=== PATIENT | female | born 1965 | race Caucasian/White ===

== ENCOUNTER 2023-11-05 13:38 | Inpatient (IN) | payer MEDICAID ==
[~2023-11-05] VITALS: Ht 154.9 cm; Wt 110.7 kg
[2023-11-05 16:12] VITALS: BP 123/74; PULSE 74; RESP 19; TEMP 97.7; O2SAT 97
[2023-11-05] MEDS ORDERED: PNEUMOCOCCAL VACCINE POLYVALENT 0.5 ML SYRINGE [PPSV23] IM. ONE (17:00)
[2023-11-05] MEDS: ZOLPIDEM TARTRATE 10 MG TABLET PO PRN (21:48)
[2023-11-05] MEDS: LORazepam 2 MG TABLET PO PRN (21:48)
[2023-11-05 23:21] VITALS: BP 128/74; PULSE 77; RESP 18; TEMP 98.1; O2SAT 96
[2023-11-06] MEDS: MetFORMIN HCL 500 MG TABLET PO SCH (06:29)
[2023-11-06 06:41] LABS: GLUCOMETER DEV NAME(LOC) BV2S.; GLUCOSE,POINT OF CARE 123 MG/DL (70-110)
[2023-11-06 08:35] LABS: BASOPHILS % (AUTO) 0.9 % (0.0-2.0); EOSINOPHILS % (AUTO) 1.9 % (1.0-6.0); HEMOGLOBIN 13.3 g/dL (12.0-16.0); LYMPHOCYTES # (AUTO) 1.3 K/uL (1.0-4.8); LYMPHOCYTES % (AUTO) 36.2 % (22.0-44.0); MEAN CORPUSCULAR HEMOGLOBIN 31.5 pg (26.0-34.0); MEAN CORPUSCULAR HGB CONC 33.3 G/dL (31.0-37.0); MEAN CORPUSCULAR VOLUME 95 fL (80-100); MONOCYTES # (AUTO) 0.3 K/uL (0.1-1.0); MONOCYTES % (AUTO) 7.5 % (2.0-9.0); NEUTROPHILS # (AUTO) 1.9 K/uL (1.8-7.7); NEUTROPHILS % (AUTO) 53.5 % (40.0-70.0); PLATELET COUNT (AUTO) 191 K/uL (150-450); RED BLOOD CELL COUNT(AUTO) 4.23 MIL/uL (4.00-5.20); RED CELL DISTRIBUTION WIDTH 13.8 % (11.5-14.5); WHITE BLOOD COUNT (AUTO) 3.5 K/uL (4.5-11.0)
[2023-11-06 08:56] VITALS: BP 126/62; PULSE 66; RESP 17; TEMP 97.7; O2SAT 96
[2023-11-06 08:59] LABS: ALANINE AMINOTRANSFERASE 20 U/L (12-78); ALBUMIN 3.3 g/dL (3.4-5.0); ALKALINE PHOSPHATASE 105 U/L (46-116); ANION GAP 9 mmol/L (8-16); ASPARTATE AMINOTRANSFERASE 20 U/L (15-37); BILIRUBIN,TOTAL 0.2 mg/dL (0.1-1.0); CALCIUM, TOTAL 9.3 mg/dL (8.8-10.5); CARBON DIOXIDE 28 mmol/L (22-29); CHLORIDE 103 mmol/L (98-107); CHOL/HDL RATIO 7.4 (3.9-5.7); CHOLESTEROL 331 mg/dL (131-200); CREATININE 0.67 mg/dL (0.60-1.30); FREE T4 (FREE THYROXINE) 1.03 ng/dL (0.76-1.46); GLOMERULAR FILTR. RATE CALC > 60 mL/min (>60); GLUCOSE,RANDOM 110 mg/dL (70-110); HDL CHOLESTEROL 45 mg/dL (40-60); LDL CHOL (CALC.) 231 mg/dL (0-130); POTASSIUM 4.3 mmol/L (3.5-5.1); SODIUM SERUM 140 mmol/L (136-145); THYROID STIMULATING HORMONE 1.33 uIU/mL (0.36-3.74); TOTAL PROTEIN, SERUM 7.8 g/dL (6.4-8.2); TRIGLYCERIDES 276 mg/dL (15-150); UREA NITROGEN, BLOOD 11 mg/dL (7-18)
[2023-11-06] MEDS ORDERED: BACITRACIN 28 GM OINTMENT TP PRN (09:00)
[2023-11-06] MEDS ORDERED: CloNIDine HCL 0.1 MG TABLET PO PRN (09:00)
[2023-11-06] MEDS ORDERED: OMEPRAZOLE 20 MG CAPSULE PO PRN (09:00)
[2023-11-06] MEDS ORDERED: MAG HYDROX/ALUMINUM HYD/SIMETH ES 30 ML SUSPENSION UDCUP PO PRN (09:00)
[2023-11-06] MEDS ORDERED: PETROLATUM,WHITE 28 GM JELLY TP PRN (09:00)
[2023-11-06] MEDS: LORazepam 2 MG TABLET PO PRN (09:00)
[2023-11-06] MEDS ORDERED: ALBUTEROL SULFATE HFA 90 MCG/PUFF 8 GM INHALER IH PRN (09:00)
[2023-11-06] MEDS ORDERED: IBUPROFEN 600 MG TABLET PO PRN (09:00)
[2023-11-06] MEDS ORDERED: ONDANSETRON HCL 4 MG TABLET PO PRN (09:00)
[2023-11-06] MEDS ORDERED: ACETAMINOPHEN 325 MG TABLET PO PRN (09:00)
[2023-11-06] MEDS ORDERED: MAGNESIUM HYDROXIDE SUSPENSION 30 ML UDCUP PO PRN (09:00)
[2023-11-06] MEDS ORDERED: DOCUSATE SODIUM 100 MG CAPSULE PO PRN (09:00)
[2023-11-06] MEDS ORDERED: BENZOCAINE/MENTHOL LOZENGE PO PRN (09:00)
[2023-11-06] MEDS ORDERED: LOPERAMIDE HCL 2 MG CAPSULE PO PRN (09:00)
[2023-11-06 17:01] LABS: GLUCOMETER DEV NAME(LOC) BV2S.; GLUCOSE,POINT OF CARE 110 MG/DL (70-110)
[2023-11-06] MEDS: ZOLPIDEM TARTRATE 10 MG TABLET PO PRN (20:04)
[2023-11-06 20:26] VITALS: BP 124/85; PULSE 74; RESP 20; TEMP 97.6; O2SAT 99
[2023-11-07] MEDS: MetFORMIN HCL 500 MG TABLET PO SCH (06:36)
[2023-11-07 07:36] LABS: GLUCOMETER DEV NAME(LOC) BV2S.; GLUCOSE,POINT OF CARE 116 MG/DL (70-110)
[2023-11-07 08:07] LABS: HEPATITIS C AB (EIA) Non Reactive (Non Reactive)
[2023-11-07 08:13] VITALS: BP 126/65; PULSE 69; RESP 17; TEMP 97.8; O2SAT 96
[2023-11-07] MEDS: BuPROPion HCL 150 MG SR TABLET PO SCH (08:31)
[2023-11-07] MEDS: NYSTATIN 30 GM CREAM TP SCH (16:20)
[2023-11-07 16:36] LABS: GLUCOMETER DEV NAME(LOC) BV2S.; GLUCOSE,POINT OF CARE 121 MG/DL (70-110)
[2023-11-07] MEDS: ZOLPIDEM TARTRATE 10 MG TABLET PO PRN (20:15)
[2023-11-07 20:20] VITALS: BP 120/62; PULSE 72; RESP 18; TEMP 97.2; O2SAT 98
[2023-11-08] MEDS: MetFORMIN HCL 500 MG TABLET PO SCH (06:43)
[2023-11-08 06:46] LABS: GLUCOMETER DEV NAME(LOC) BV2S.; GLUCOSE,POINT OF CARE 115 MG/DL (70-110)
[2023-11-08] MEDS: NYSTATIN 30 GM CREAM TP SCH ×2 (08:14→15:57)
[2023-11-08] MEDS: BuPROPion HCL 150 MG SR TABLET PO SCH (08:14)
[2023-11-08 08:31] VITALS: BP 108/66; PULSE 68; RESP 16; TEMP 98.2; O2SAT 97
[2023-11-08 17:31] LABS: GLUCOMETER DEV NAME(LOC) BV2S.; GLUCOSE,POINT OF CARE 106 MG/DL (70-110)
[2023-11-08 20:16] VITALS: BP 100/64; PULSE 71; RESP 16; TEMP 97.5; O2SAT 96
[2023-11-08] MEDS: ATORVASTATIN CALCIUM 20 MG TABLET PO SCH (20:31)
[2023-11-08] MEDS: ZOLPIDEM TARTRATE 10 MG TABLET PO PRN (21:57)
[2023-11-09] MEDS: MetFORMIN HCL 500 MG TABLET PO SCH (06:24)
[2023-11-09 07:55] LABS: APPEARANCE,URINE TURBID (CLEAR); BILIRUBIN,URINE NEGATIVE (NEGATIVE); COLOR,URINE LIGHT ORANGE (YELLOW); GLUCOSE, URINE (UA) NEGATIVE (NEGATIVE); KETONES,URINE NEGATIVE (NEGATIVE); LEUKOCYTE ESTERASE ,URINE NEGATIVE (NEGATIVE); NITRATE,URINE NEGATIVE (NEGATIVE); OCCULT BLOOD,URINE NEGATIVE (NEGATIVE); PH,URINE 5.5 (5.0-8.0); PH,URINE DRUG SCREEN 5.5 (5.0-8.0); PROTEIN,URINE TRACE mg/dL (NEGATIVE); SPECIFIC GRAVITIY, URINE 1.023 (1.003-1.030); UROBILINOGEN,URINE <=1.0 mg/dL (<=1.0)
[2023-11-09 08:05] LABS: ALCOHOL, URINE DRUG SCREEN NEGATIVE (NEGATIVE); AMPHET/METH SCREEN,URINE NEGATIVE (NEGATIVE); BARBITURATE SCREEN, URINE NEGATIVE (NEGATIVE); BENZODIAZEPINES SCREEN,URINE NEGATIVE (NEGATIVE); CANNABINOID SCREEN,URINE NEGATIVE (NEGATIVE); COCAINE SCREEN,URINE NEGATIVE (NEGATIVE); METHADONE SCREEN, URINE NEGATIVE (NEGATIVE); OPIATE SCREEN,URINE NEGATIVE (NEGATIVE); PHENCYCLIDINE SCREEN,URINE NEGATIVE (NEGATIVE)
[2023-11-09] MEDS: HALOPERIDOL 5 MG TABLET PO PRN (08:07)
[2023-11-09] MEDS: LORazepam 2 MG TABLET PO PRN (08:07)
[2023-11-09] MEDS: BuPROPion HCL 150 MG SR TABLET PO SCH (08:08)
[2023-11-09] MEDS: DOLUTEGRAVIR SODIUM 50 MG TABLET PO SCH (08:08)
[2023-11-09] MEDS: NYSTATIN 30 GM CREAM TP SCH ×2 (08:21→17:00)
[2023-11-09 08:50] VITALS: BP 136/74; PULSE 72; RESP 17; TEMP 97; O2SAT 97
[2023-11-09 17:16] LABS: GLUCOMETER DEV NAME(LOC) BV2S.; GLUCOSE,POINT OF CARE 125 MG/DL (70-110)
[2023-11-09] MEDS ORDERED: BUPR-72 PO (18:53)
[2023-11-09] MEDS: ZOLPIDEM TARTRATE 10 MG TABLET PO PRN (20:02)
[2023-11-09] MEDS: ATORVASTATIN CALCIUM 20 MG TABLET PO SCH (20:02)
[2023-11-09 20:03] VITALS: BP 128/70; PULSE 74; RESP 18; TEMP 98; O2SAT 98
[2023-11-10] MEDS: MetFORMIN HCL 500 MG TABLET PO SCH (06:06)
[2023-11-10 06:21] LABS: GLUCOMETER DEV NAME(LOC) BV2S.; GLUCOSE,POINT OF CARE 124 MG/DL (70-110)
[2023-11-10 08:22] VITALS: BP 145/95; PULSE 76; RESP 17; TEMP 97.9; O2SAT 97
[2023-11-10] MEDS: NYSTATIN 30 GM CREAM TP SCH (08:33)
[2023-11-10] MEDS: HALOPERIDOL 5 MG TABLET PO PRN (08:33)
[2023-11-10] MEDS: DOLUTEGRAVIR SODIUM 50 MG TABLET PO SCH (08:33)
[2023-11-10] MEDS: BuPROPion HCL 150 MG SR TABLET PO SCH (08:33)
[2023-11-10] MEDS: LORazepam 2 MG TABLET PO PRN (08:33)
[2023-11-10 13:41] LABS: GLUCOMETER DEV NAME(LOC) BV2S.; GLUCOSE,POINT OF CARE 119 MG/DL (70-110)
== END 2023-11-10 15:50 | disposition home or self-care (01) | DRG 753 ==
LOC: B2S 14:58
PROVIDERS: ADMIT Psychiatry & Neurology Psychiatry; ATTEND Psychiatry & Neurology Psychiatry
DX: F31.9 Bipolar disorder, unspecified (principal); E11.9 Type 2 diabetes mellitus without complications; I10 Essential (primary) hypertension; G47.00 Insomnia, unspecified; K59.00 Constipation, unspecified; F41.9 Anxiety disorder, unspecified; F20.9 Schizophrenia, unspecified; E78.5 Hyperlipidemia, unspecified; Z59.00 Homelessness unspecified
CPT/HCPCS: 80053; 80061; 80307; 81003; 82962; 83036; 84439; 84443; 85025; 86592; 86803; 87340; Q0162